=== PATIENT | female | born 1975 | race Caucasian/White ===

== ENCOUNTER 2020-07-28 21:02 | Emergency (ER) | payer MEDICAID ==
[~2020-07-28] VITALS: Ht 157.5 cm; Wt 107.2 kg
[2020-07-28 21:12] VITALS: BP 162/95
[2020-07-28 22:03] LABS: CLARITY URINE CLEAR (CLEAR); COLOR URINE YELLOW (YELLOW); KETONES URINE NEGATIVE (NEGATIVE); LEUKOCYTE ESTERASE URINE 1+ (NEGATIVE); NITRITE URINE NEGATIVE (NEGATIVE); OCCULT BLOOD URINE NEGATIVE (NEGATIVE); PH URINE 5.5 (4.5-8.0); PROTEIN URINE NEGATIVE (NEGATIVE); SPECIFIC GRAVITY URINE 1.024 (1.005-1.030); UROBILINOGEN URINE 0.2 E.U./dL (0.2-1.0)
[2020-07-28] MEDS ORDERED: CEPHALEXIN 250MG CAPSULE PO ONE (22:45)
[2020-07-28] MEDS ORDERED: IBUPROFEN 400MG TABLET PO ONE (22:45)
[2020-07-28] MEDS ORDERED: CEPH500C2 MT (22:49)
== END 2020-07-28 23:16 | disposition home or self-care (01) ==
LOC: ER 21:02
DX: L03.115 Cellulitis of right lower limb (principal); Z90.49 Acquired absence of other specified parts of digestive tract; Z90.710 Acquired absence of both cervix and uterus
CPT/HCPCS: 81003; 99283

== ENCOUNTER 2021-09-21 17:27 | Emergency (ER) | payer MEDICAID ==
[~2021-09-21] VITALS: Ht 165.1 cm; Wt 107.0 kg
[~2021-09-21 17:27] MED LIST: CEPH500C2 MT
[2021-09-21] MEDS ORDERED: CEPH500C2 MT (19:22)
[2021-09-21] MEDS ORDERED: CEPHALEXIN 250MG CAPSULE PO ONE (19:30)
[2021-09-21] MEDS ORDERED: KETOROLAC 30MG/ML VIAL IM ONE (20:45)
[2021-09-21] MEDS ORDERED: CEPHALEXIN 250MG CAPSULE PO NR (20:45)
[2021-09-21] MEDS ORDERED: ACETAMINOPHEN 325MG TABLET PO ONE (20:45)
[2021-09-21 21:30] VITALS: BP 135/82
== END 2021-09-21 22:06 | disposition home or self-care (01) ==
LOC: ER 17:27
DX: L03.115 Cellulitis of right lower limb (principal); Z90.49 Acquired absence of other specified parts of digestive tract; Z90.710 Acquired absence of both cervix and uterus; Z98.890 Other specified postprocedural states
CPT/HCPCS: 96372; 99283; J1885

== ENCOUNTER 2022-02-06 19:41 | Emergency (ER) | payer MEDICAID ==
[~2022-02-06] VITALS: Ht 165.1 cm; Wt 106.0 kg
[2022-02-06 19:48] VITALS: BP 171/96
== END 2022-02-07 02:31 | disposition left against medical advice (07) ==
LOC: ER 19:41
DX: Z53.21 Procedure and treatment not carried out due to patient leaving prior to being seen by health care provider (principal)

== ENCOUNTER 2023-01-02 08:20 | Emergency (ER) | payer MEDICAID ==
[~2023-01-02] VITALS: Ht 157.5 cm; Wt 104.0 kg
[2023-01-02 08:24] VITALS: O2SAT 97
[2023-01-02 09:06] LABS: BASOPHILS % 0.8 % (0.0-2.0); EOSINOPHILS % 0.9 % (0.0-5.0); HEMATOCRIT. 44.8 % (36.0-48.0); HEMOGLOBIN. 15.2 g/dL (12.0-16.0); LYMPHOCYTES % 25.4 % (20.0-50.0); MEAN CORPUSCULAR HEMOGLOBIN 29.4 pg (28.0-32.0); MEAN CORPUSCULAR VOLUME 86.4 fL (81.0-99.0); MEAN PLATELET VOLUME 7.8 fl (7.4-10.4); MONOCYTES % 4.9 % (2.0-8.0); PLATELET 253 x1000/uL (130-400); RED BLOOD CELL COUNT 5.18 mill/uL (4.2-5.4); RED CELL DISTRIBUTION WIDTH 14.1 % (11.6-14.6); WHITE BLOOD COUNT 8.5 x1000/uL (4.5-11.0)
[2023-01-02 09:14] LABS: CHLORIDE 107 mEq/L (98-107); INDEX HEMOLYSI 1 (1-3); INDEX ICTERIC 1 (1-4); INDEX LIPEMIC 1 (1-3); SODIUM 137 mEq/L (136-145)
[2023-01-02 09:22] LABS: ALANINE AMINOTRANSFERASE 22 IU/L (13-61); ALBUMIN 3.4 g/dL (3.4-5.0); ASPARTATE AMINOTRANSFERASE 12 IU/L (15-37); BILIRUBIN TOTAL 0.6 mg/dL (0.1-1.0); CALCIUM 8.7 mg/dL (8.5-10.1); CARBON DIOXIDE 24 mEq/L (21-32); CREATININE 0.7 mg/dL (0.6-1.3); GLUCOSE 108 mg/dL (70-105); PROTEIN TOTAL 7.9 g/dL (6.0-8.3); UREA NITROGEN BLOOD 12 mg/dL (7-21)
[2023-01-02] MEDS ORDERED: HYDROCODONE/ACETAMINOPHEN 5/325MG TABLET PO STA (10:37)
[2023-01-02] MEDS ORDERED: IBUP-2029 MT (14:02)
[2023-01-02 14:30] VITALS: BP 143/80; PULSE 86; RESP 16; TEMP 98.5
== END 2023-01-02 14:38 | disposition home or self-care (01) ==
LOC: ER 08:20
DX: R51.9 Headache, unspecified (principal)
CPT/HCPCS: 36415; 80053; 81025; 85025; 99284

== ENCOUNTER 2023-01-04 18:34 | Emergency (ER) | payer MEDICAID ==
[~2023-01-04] VITALS: Ht 157.5 cm; Wt 104.0 kg
[~2023-01-04 18:34] MED LIST changes: +IBUP-2029 MT
[2023-01-04 19:00] VITALS: O2SAT 98
[2023-01-04 19:05] LABS: BASOPHILS % 0.6 % (0.0-2.0); EOSINOPHILS % 1.5 % (0.0-5.0); HEMATOCRIT. 43.9 % (36.0-48.0); HEMOGLOBIN. 14.9 g/dL (12.0-16.0); LYMPHOCYTES % 22.5 % (20.0-50.0); MEAN CORPUSCULAR HEMOGLOBIN 29.9 pg (28.0-32.0); MEAN CORPUSCULAR VOLUME 87.9 fL (81.0-99.0); MEAN PLATELET VOLUME 7.5 fl (7.4-10.4); MONOCYTES % 7.2 % (2.0-8.0); NEUTROPHILS % 68.2 % (40.0-76.0); PLATELET 242 x1000/uL (130-400); RED CELL DISTRIBUTION WIDTH 13.5 % (11.6-14.6); WHITE BLOOD COUNT 9.3 x1000/uL (4.5-11.0)
[2023-01-04 19:12] LABS: CHLORIDE 105 mEq/L (98-107); INDEX HEMOLYSI 1 (1-3); INDEX ICTERIC 1 (1-4); INDEX LIPEMIC 1 (1-3); POTASSIUM 3.6 mEq/L (3.5-5.1); SODIUM 138 mEq/L (136-145)
[2023-01-04 19:22] LABS: ALANINE AMINOTRANSFERASE 31 IU/L (13-61); ALBUMIN 3.5 g/dL (3.4-5.0); ASPARTATE AMINOTRANSFERASE 18 IU/L (15-37); BILIRUBIN TOTAL 0.4 mg/dL (0.1-1.0); CARBON DIOXIDE 26 mEq/L (21-32); CREATININE 0.7 mg/dL (0.6-1.3); GLUCOSE 112 mg/dL (70-105); PROTEIN TOTAL 7.7 g/dL (6.0-8.3); UREA NITROGEN BLOOD 11 mg/dL (7-21)
[2023-01-04 22:40] VITALS: BP 158/77; PULSE 71; RESP 22; TEMP 98.1
[2023-01-04 22:48] LABS: CLARITY URINE CLOUDY (CLEAR); COLOR URINE YELLOW (YELLOW); GLUCOSE URINE NEGATIVE (NEGATIVE); KETONES URINE TRACE (NEGATIVE); LEUKOCYTE ESTERASE URINE NEGATIVE (NEGATIVE); NITRITE URINE NEGATIVE (NEGATIVE); OCCULT BLOOD URINE NEGATIVE (NEGATIVE); PH URINE 5.5 (4.5-8.0); PROTEIN URINE TRACE (NEGATIVE)
[2023-01-04 22:52] LABS: BACTERIA URINE 1+; RBC URINE 0-2 /hpf (0-2); SQUAMOUS EPITHELIAL CELL URINE 2+ /lpf (RARE/1+); YEAST URINE NONE SEEN
[2023-01-04] MEDS ORDERED: DEXAMETHASONE 10 MG/ML VIAL IV NR (23:15)
[2023-01-04] MEDS ORDERED: METOCLOPRAMIDE HCL 10MG/2ML VIAL IV NR (23:15)
[2023-01-04] MEDS ORDERED: SODIUM CHLORIDE 0.9% 1,000 ML IV NR (23:15)
[2023-01-04] MEDS ORDERED: MAGNESIUM 2 G PREMIX 50 ML IV NR (23:15)
[2023-01-04] MEDS: ACETAMINOPHEN 325MG TABLET PO NR (23:32)
[2023-01-05] MEDS ORDERED: METO-293 MT (01:36)
[2023-01-05] MEDS ORDERED: ACET-2708 MT (01:36)
[2023-01-05] MEDS: ACETAMINOPHEN 325MG TABLET PO NR (02:21)
== END 2023-01-05 03:16 | disposition home or self-care (01) ==
LOC: ER 18:34
DX: G43.909 Migraine, unspecified, not intractable, without status migrainosus (principal); I10 Essential (primary) hypertension; Z98.890 Other specified postprocedural states; Z90.710 Acquired absence of both cervix and uterus; Z20.822 Contact with and (suspected) exposure to COVID-19
CPT/HCPCS: 99284; 96365; 96366; 96375; 87426; 80053; 81003; 81025; 85025; 36415; 93005; 70450; J1100; J3475; J2765; C9803